=== PATIENT | male | born 1960 | race Caucasian/White ===

== ENCOUNTER 2021-02-05 10:06 | Emergency (ER) | payer BC ==
[2021-02-05] MEDS ORDERED: Ondansetron 4 MG Tab.DIS PO ONE (11:27)
--- NOTE | 2021-02-05 12:43 | EDM.PDOC ---
ED HPI GENERAL MEDICAL PROBLEM - General Chief Complaint: Gastrointestinal Problem Stated Complaint: MEDICAL Time Seen by Provider: 02/05/21 12:42 Source of Information: Reports: Patient History Limitations: Reports: No Limitations - History of Present Illness INITIAL COMMENTS - FREE TEXT/NARRATIVE: This is a 60-year-old male with history of C. difficile infection who presents w [facility] concerns of diarrheal illness. He reports that beginning yesterday afternoon he developed nausea, vomiting, diarrhea. No blood. No fevers. No significant abdominal pain. Has history of C. difficile infection earlier this summer in the setting of antibiotic use. He is concerned this has recurred. He has no recent antibiotics now. He also endorses muscle aches and pains. - Related Data Allergies Allergy/AdvReac Type Severity Reaction Status Date / Time No Known Allergies Allergy Verified 02/05/21 10:48 Home Meds: Home Meds Albuterol [Proventil HFA] 200 puff INH Q2H 02/05/21 [History] Ondansetron [Zofran ODT] 4 mg PO Q6H PRN #8 tab.dis 02/05/21 [Rx] Past Medical History HEENT History: Reports: Impaired Vision Respiratory History: Reports: Asthma Gastrointestinal History: Reports: Other (See Below) Other Gastrointestinal History: recent dairrhea Social & Family History - Tobacco Use Tobacco Use Status *Q: Never Tobacco User - Caffeine Use Caffeine Use: Reports: Soda - Recreational Drug Use Recreational Drug Use: No ED ROS GENERAL - Review of Systems Review Of Systems: See Below Constitutional: Reports: No Symptoms HEENT: Reports: No Symptoms Respiratory: Reports: No Symptoms Cardiovascular: Reports: No Symptoms Endocrine: Reports: No Symptoms GI/Abdominal: Reports: Diarrhea, Vomiting : Reports: No Symptoms Musculoskeletal: Reports: No Symptoms Skin: Reports: No Symptoms Neurological: Reports: No Symptoms Psychiatric: Reports: No Symptoms Hematologic/Lymphatic: Reports: No Symptoms Immunologic: Reports: No Symptoms ED EXAM, GI/ABD - Physical Exam Exam: See Below Exam Limited By: No Limitations General Appearance: Alert, No Apparent Distress Ears: Normal External Exam Nose: Normal Inspection Throat/Mouth: Normal Inspection Head: Atraumatic, Normocephalic Neck: Normal Inspection Respiratory/Chest: Lungs Clear Cardiovascular: Regular Rate, Rhythm GI/Abdominal Exam: Soft, Non-Tender Back Exam: Normal Inspection Extremities: Normal Inspection Neurological: Alert, Oriented Psychiatric: Normal Affect, Normal Mood Skin Exam: Warm, Dry Course - Vital Signs Last Recorded V/S: Last Vital Signs Temp 36.2 C 02/05/21 10:45 Pulse 95 02/05/21 10:45 Resp 18 02/05/21 10:45 BP 151/97 H 02/05/21 10:45 Pulse Ox 99 02/05/21 10:45 - Orders/Labs/Meds Meds: Medications Discontinued Medications Generic Name Dose Route Start Last Admin Trade Name Michelle PRN Reason Stop Dose Admin Ondansetron HCl 4 mg 02/05/21 11:27 02/05/21 11:34 Ondansetron 4 Mg Tab.Dis PO 02/05/21 11:28 4 mg ONETIME ONE Administration - Re-Assessments/Exams Free Text/Narrative Re-Assessment/Exam: This is a 60-year-old male presents with concerns of nausea, vomiting, & diarrhea. On exam his vitals are normal. He has no abdominal pain. He denies any fevers. No blood in the stools or vomit. Symptoms seem most consistent with a viral gastroenteritis. He does have a history of C. difficile, but no recent antibiotic use or expected trigger for this. If this is C. difficile there is no evidence currently of toxic megacolon or emergency, I think we are safe to follow him for couple days given this is likely viral and is difficult to test for cure for C. difficile. Actually no diarrhea now for several hours while in the ED. If he is having significant pain, fevers, or loose stools he will return to the ER for repeat evaluation. He was given a dose of Zofran is tolerating p.o. Have sent him with a prescription for this. Discharged return precautions. 02/05/21 19:39 Departure - Departure Time of Disposition: 12:42 Disposition: Home, Self-Care 01 Clinical Impression: Gastroenteritis - Discharge Information *PRESCRIPTION DRUG MONITORING PROGRAM REVIEWED*: No *COPY OF PRESCRIPTION DRUG MONITORING REPORT IN PATIENT DEREK: No Prescriptions: Ondansetron [Zofran ODT] 4 mg PO Q6H PRN #8 tab.dis PRN Reason: Nausea Instructions: Diarrhea, Adult Referrals: PCP,None [Primary Care Provider] - Forms: ED Department Discharge Additional Instructions: As discussed, please push fluids and take the prescribed Zofran to help with nausea. We suspect that your diarrhea and vomiting are due to a virus, so let us give it up to 72 hours to resolve before we look at dusting and treating you for C. difficile. If your symptoms significantly worsen in the meantime, we are always happy to reevaluate you in the emergency room. You for trusting us to care for you today. Sepsis Event Note (ED) - Focused Exam Vital Signs: Vital Signs Temp Pulse Resp BP Pulse Ox 02/05/21 10:45 36.2 C 95 18 151/97 H 99
== END 2021-02-05 13:05 | disposition home or self-care (01) ==
LOC: JP.ED 10:06
DX: K52.9 Noninfective gastroenteritis and colitis, unspecified (principal); J45.909 Unspecified asthma, uncomplicated
CPT/HCPCS: 99283; A9270